=== PATIENT | female | born 1985 | race Caucasian/White ===

== ENCOUNTER 2018-05-10 19:34 | Emergency (ER) | END 2018-05-10 22:03 | disposition home or self-care (01) ==

== ENCOUNTER 2018-05-27 21:32 | Emergency (ER) | END 2018-05-28 02:08 | disposition home or self-care (01) ==

== ENCOUNTER 2018-12-28 20:07 | Emergency (ER) | payer MEDICAID ==
[~2018-12-28] VITALS: Ht 147.3 cm; Wt 109.4 kg
[~2018-12-28 20:07] MED LIST: CYCL10TA7 PO; HYDR-3980 PO; IBUP800T48 PO; LORA-441 PO; NITR-58 PO; ONDA4TAB14 PO; PRENAT PO
[2018-12-28 20:39] VITALS: Ht 147.3 cm; Wt 109.4 kg
[2018-12-28] MEDS ORDERED: KETOROLAC 15 MG INJ IV STA (21:55)
[2018-12-28] MEDS ORDERED: SOD CHLORIDE 0.9% 500 ML IV STA (21:55)
[2018-12-28] MEDS ORDERED: LIDOCAINE/MYLANTA 40 ML BTL PO STA (21:59)
[2018-12-28] MEDS ORDERED: BELLADONNA/PHENOBARBITAL TAB PO STA (21:59)
[2018-12-28] MEDS ORDERED: LORAZEPAM 0.5 MG TAB PO ONE (22:00)
--- NOTE | 2018-12-28 22:01 | ERD ---
ER Documentation Chief Complaint Chief Complaint C/O MEDIAL UPPER CP, RT SIDED GUSTAFSON, HX OF MIGRAINES, C/O NAUSEA HPI 33-year-old woman complaining of sharp nonexertional nonradiating chest pain, palpitations, paresthesias and pains to the right side of the scalp and face beginning earlier today lasting for a few hours. She states she has had multiple similar episodes in the past going back for at least one year. She does admit to feeling anxious today. She denies fevers or chills, no weight loss, no URI symptoms, no blurry vision, no slurred speech, no weakness in her arms or legs ROS All systems reviewed and are negative except as per history of present illness. Medications Home Meds Active Scripts Cephalexin* (Keflex*) 500 Mg Capsule, 500 MG PO QID for 5 Days, CAP Prov:ZHAO GONZALEZ MD 12/28/18 Ibuprofen* (Motrin*) 800 Mg Tab, 800 MG PO Q6, #30 TAB Prov:SHELIA WILLSON PA-C 05/28/18 Ondansetron (Ondansetron Odt) 4 Mg Tab.rapdis, 4 MG PO Q6H PRN for NAUSEA AND/OR VOMITING, #20 TAB Prov:AMISH WILSON PA-C 05/10/18 Hydrocodone/Acetaminophen (Baird 10-325 Tablet) 1 Each Tablet, 1 TAB PO Q6H PRN for PAIN, #15 TAB Prov:AMISH WILSON PA-C 05/10/18 Nitrofurantoin Monohyd Macrocr* (Macrobid*) 100 Mg Capsr, 100 MG PO BID for 7 Days, CAP Prov:AMISH WILSON PA-C 05/10/18 Cyclobenzaprine Hcl* (Cyclobenzaprine Hcl*) 10 Mg Tablet, 10 MG PO TID, #15 TAB Prov:ILDA PLASCENCIA NP 05/29/16 Ibuprofen* (Motrin*) 800 Mg Tab, 800 MG PO Q8 PRN for PAIN AND OR ELEVATED TEMP, #30 TAB Prov:ILDA PLASCENCIA NP 05/29/16 Ondansetron (Ondansetron Odt) 4 Mg Tab.rapdis, 4 MG PO Q6H PRN for NAUSEA AND/OR VOMITING, #10 TAB Prov:IZABEL ROWLEY MD 05/05/16 Nitrofurantoin Monohyd Macrocr* (Macrobid*) 100 Mg Capsr, 100 MG PO BID for 7 Days, CAP Prov:IZABEL ROWLEY MD 05/05/16 Lorazepam* (Ativan*) 0.5 Mg Tablet, 0.5 MG PO Q8, #10 Prov:NANCY VIEIRA PA-C 07/08/15 Nitrofurantoin Monohyd Macrocr* (Macrobid*) 100 Mg Capsr, 100 MG PO BID for 7 Days, CAP Prov:ILDA PLASCENCIA NP 06/16/15 Ibuprofen* (Motrin*) 800 Mg Tab, 800 MG PO Q6H PRN for PAIN AND OR ELEVATED TEMP, #30 TAB Prov:ILDA PLASCENCIA NP 06/16/15 Reported Medications Multivit/Min/Fol Ac/Iron/Pren* ( S*) 1 Tab Tab, 1 TAB PO DAILY, TAB 03/14/14 Allergies Allergies: Coded Allergies: No Known Allergy (Verified , 05/05/16) PMhx/Soc History of Surgery: Yes (gall bladder removed , c sex x3 ) Anesthesia Reaction: No Hx Neurological Disorder: No Hx Respiratory Disorders: No Hx Cardiac Disorders: No Hx Psychiatric Problems: No Hx Miscellaneous Medical Probl: Yes (pancreatitis ) Hx Alcohol Use: Yes (socially ) Hx Substance Use: No Hx Tobacco Use: Yes FmHx Family History: diabetes Physical Exam Vitals Vital Signs Date Temp Pulse Resp B/P (MAP) Pulse Ox O2 O2 Flow FiO2 Time Delivery Rate 12/28/18 75 17 114/69 100 Room Air 23:23 (84) 12/28/18 98.9 77 19 112/59 99 20:39 (76) Physical Exam GENERAL: Well-developed, well-nourished, appears anxious, afebrile NEURO: Alert and oriented 3, cranial nerves II through XII intact bilaterally, pupils equal round reactive to light, no focal deficits or facial asymmetry, sensation intact distally Strength 5/5 in upper and lower extremities bilaterally CARDIAC: Regular rate and rhythm, no murmurs rubs or gallops LUNGS: Clear bilaterally no wheezing crackles or stridor ABDOMEN: Soft nontender, no guarding, no rigidity, no rebound, no psoas sign no obturator sign. SKIN: Warm and dry to touch, no abrasions, contusions, or hematomas, no lacerations, no ecchymosis, no target lesions, and without ulcers EXTREMITIES: No clubbing cyanosis or edema, calves are bilaterally symmetrical, no Homans sign, no popliteal cord sign. Distal pulses equal and bilateral PSYCH: Anxious Result Diagram: 12/28/18220312/28/182203 Results 24 hrs Laboratory Tests Test 12/28/18 22:03 12/28/18 22:04 POC Beta HCG, Qualitative NEGATIVE White Blood Count 9.4 10^3/ul Red Blood Count 4.97 10^6/ul Hemoglobin 12.2 g/dl Hematocrit 39.1 % Mean Corpuscular Volume 78.7 fl Mean Corpuscular Hemoglobin 24.5 pg Mean Corpuscular Hemoglobin Concent 31.2 g/dl Red Cell Distribution Width 15.9 % Platelet Count 185 10^3/UL Mean Platelet Volume 13.0 fl Immature Granulocytes % 0.300 % Neutrophils % 51.7 % Lymphocytes % 37.5 % Monocytes % 7.2 % Eosinophils % 2.6 % Basophils % 0.7 % Nucleated Red Blood Cells % 0.0 /100WBC Immature Granulocytes # 0.030 10^3/ul Neutrophils # 4.8 10^3/ul Lymphocytes # 3.5 10^3/ul Monocytes # 0.7 10^3/ul Eosinophils # 0.2 10^3/ul Basophils # 0.1 10^3/ul Nucleated Red Blood Cells # 0.0 10^3/ul Urine Color YELLOW Urine Clarity SLIGHTLY CLOUDY Urine pH 7.0 Urine Specific Cornell 1.024 Urine Ketones NEGATIVE mg/dL Urine Nitrite NEGATIVE mg/dL Urine Bilirubin NEGATIVE mg/dL Urine Urobilinogen 2+ mg/dL Urine Leukocyte Esterase TRACE Mara/ul Urine Microscopic RBC 3 /HPF Urine Microscopic WBC 22 /HPF Urine Squamous Epithelial Cells MODERATE /HPF Urine Bacteria FEW /HPF Urine Hemoglobin NEGATIVE mg/dL Urine Glucose NEGATIVE mg/dL Urine Total Protein NEGATIVE mg/dl Sodium Level 138 mmol/L Potassium Level 3.9 mmol/L Chloride Level 104 mmol/L Carbon Dioxide Level 25 mmol/L Anion Gap 9 Blood Urea Nitrogen 11 mg/dl Creatinine 0.70 mg/dl Est Glomerular Filtrat Rate mL/min > 60 mL/min Glucose Level 108 mg/dl Calcium Level 9.8 mg/dl Total Bilirubin 0.2 mg/dl Direct Bilirubin 0.00 mg/dl Indirect Bilirubin 0.2 mg/dl Aspartate Amino Transf (AST/SGOT) 24 IU/L Alanine Aminotransferase (ALT/SGPT) 33 IU/L Alkaline Phosphatase 93 IU/L Troponin I < 0.012 ng/ml Total Protein 7.6 g/dl Albumin 4.0 g/dl Globulin 3.60 g/dl Albumin/Globulin Ratio 1.11 Lipase 52 U/L Current Medications Medications Dose Sig/Alfa Start Time Status Last (Trade) Ordered Route PRN Stop Time Admin Dose Reason Admin Sodium 500 ml @ Q1H STAT 12/28/18 DC 12/28/18 Chloride 500 mls/hr IV 21:55 12/28/18 22:17 22:54 Ketorolac 15 mg ONCE STAT 12/28/18 DC 12/28/18 Tromethamine IV 21:55 12/28/18 22:17 (Toradol) 21:56 Lorazepam 0.5 mg ONCE ONCE 12/28/18 DC 12/28/18 (Ativan) PO 22:00 12/28/18 22:17 22:01 40 ml ONCE STAT 12/28/18 DC 12/28/18 Miscellaneous PO 21:59 12/28/18 22:17 Medication 22:02 (Gi Cocktail (2)) Belladonna/ 2 tab ONCE STAT 12/28/18 DC 12/28/18 Phenobarbital PO 21:59 12/28/18 22:17 () 22:02 Cephalexin 500 mg ONCE ONCE 12/28/18 DC 12/28/18 (Keflex) PO 23:00 12/28/18 22:58 23:01 Procedures/MDM IV line was established patient was placed on chiller technician rhythm strip revealed a sinus rhythm at about 80 bpm with upright P and T waves. Patient was afebrile Chest X-ray 1V Interpreted by me: Soft Tissue: No acute abnormalities Bones: No acute abnormalities Mediastinum/Cardiac Silhouette/Lungs: No acute abnormalities EKG performed, read by me: 87 bpm, normal sinus rhythm, normal axis, no acute ST segment changes, narrow QRS complex, with good R-wave progression in precordial leads. I administered 500 cc normal saline IV, lorazepam 0.5 mg p.o. x1, Toradol 15 mg IV, GI cocktail p.o. CBC and electrolytes are normal, liver function tests were normal, troponin was negative, test was negative, urine analysis concerning for UTI and I administered cephalexin 500 mg p.o. x1 Differential diagnoses considered, included but not limited to acute coronary syndrome, pulmonary embolism, aortic dissection, abdominal aortic aneurysm, sepsis, stroke, meningitis, encephalitis, pneumonia, appendicitis, cholecystitis, bowel obstruction, pyelonephritis, nephrolithiasis, cystitis, as well as metabolic, hematologic, and electrolyte abnormalities. As well as abscess, cellulitis, fractures, and dislocations. Patient feels much better at this time, and vital signs are normal, symptoms have improved. I did give strict instructions to return to the ED if symptoms continue or worsen, patient will otherwise follow-up with primary care physician. Patient understood instructions and agreed to plan. Disclaimer: Inadvertent spelling and grammatical errors are likely due to EHR/dictation software use and do not reflect on the overall quality of patient care. Also, please note that the electronic time recorded on this note does not necessarily reflect the actual time of the patient encounter. Departure Diagnosis: Primary Impression: Chest pain Chest pain type: unspecified Qualified Codes: R07.9 - Chest pain, unspecified Additional Impressions: Palpitations Acute UTI Condition: ZHAO Stark MD December 28, 2018 22:01
[2018-12-28] MEDS ORDERED: CEPHALEXIN 500 MG CAP PO ONE (23:00)
[2018-12-28] MEDS ORDERED: CEPH-443 PO (23:09)
[2018-12-28 23:23] VITALS: BP 114/69; PULSE 75; RESP 17
== END 2018-12-28 23:25 | disposition home or self-care (01) ==
LOC: E/R 20:07
DX: N39.0 Urinary tract infection, site not specified (principal); R00.2 Palpitations; Z87.891 Personal history of nicotine dependence
CPT/HCPCS: 36415; 71045; 80053; 81001; 81025; 83690; 84484; 85025; 93005; 96374; J1885; J7040; Z7502; Z7610

== ENCOUNTER 2019-05-01 09:29 | Emergency (ER) | payer MEDICAID, OTHER ==
[~2019-05-01] VITALS: Ht 152.4 cm; Wt 113.0 kg
[~2019-05-01 09:29] MED LIST changes: +ALBU18HF INHALATION; +AZIT250T PO; +CEPH-443 PO; +D-ME473S2 PO; +PRED20TA PO
[2019-05-01 09:46] VITALS: BP 129/85; PULSE 80; RESP 18; Ht 152.4 cm; Wt 113.0 kg
[2019-05-01] MEDS ORDERED: IBUPROFEN 800 MG TAB PO ONE (10:30)
== END 2019-05-01 11:50 | disposition home or self-care (01) ==
LOC: E/R 09:29
DX: J20.9 Acute bronchitis, unspecified (principal); Z87.891 Personal history of nicotine dependence
CPT/HCPCS: 71045; 93005; Z7502; Z7610

== ENCOUNTER 2019-05-07 18:34 | Emergency (ER) | payer OTHER ==
[~2019-05-07] VITALS: Ht 152.4 cm; Wt 113.9 kg
[~2019-05-07 18:34] MED LIST changes: -CEPH-443 PO; -CYCL10TA7 PO; -HYDR-3980 PO; -LORA-441 PO; -NITR-58 PO; -ONDA4TAB14 PO; -PRENAT PO
[2019-05-07 18:36] VITALS: BP 142/88; PULSE 93; RESP 20; Ht 152.4 cm; Wt 113.9 kg
== END 2019-05-07 19:54 | disposition home or self-care (01) ==
LOC: E/R 18:34
DX: R05 Cough (principal)
CPT/HCPCS: 99283